=== PATIENT | male | born 1940 | race Caucasian/White ===

== ENCOUNTER → 2020-08-27 | Outpatient (CLI) | payer MEDICARE ==
[~2020-08-27] MED LIST: BREO ELLIPTA 21 EACH INH; CEFUROXIME500 MG PO; DIFLUCAN150 MG PO; DONEPEZIL HCL5 MG PO; FINASTERIDE5 MG PO; LEVOFLOXACIN500 MG PO; MEGACE 400400 MG/10 PO; METRONIDAZOLE250 MG PO; MINERAL OIL473 M2 NG; PANTOPRAZOLE SO40 MG PO; PERCOCET 5/325 T1 EA PO; QUETIAPINE FUMA25 MG PO; SPIRIVA RESPIMAT4 GM INH; TAMSULOSIN HCL0.4 MG PO; TYLENOL ELIXIR GT
== END ==
LOC: US 09:56
DX: K42.9 Umbilical hernia without obstruction or gangrene (principal); I71.4 Abdominal aortic aneurysm, without rupture
CPT/HCPCS: 76700

== ENCOUNTER → 2020-09-30 | Outpatient (CLI) | payer MEDICARE ==
[2020-09-30 09:24] LABS: HEMOGLOBIN 15.8 gm/dl (14.0-17.5); RED BLOOD COUNT 4.85 M/UL (4.20-5.50); WHITE BLOOD COUNT 9.4 K/UL (4.5-11.0)
== END ==
LOC: CT 08:55
PROVIDERS: Internal Medicine Hematology & Oncology
DX: C85.90 Non-Hodgkin lymphoma, unspecified, unspecified site (principal); I71.4 Abdominal aortic aneurysm, without rupture; M79.89 Other specified soft tissue disorders
CPT/HCPCS: 36415; 71260; 80053; 83615; 85027; Q9967

== ENCOUNTER → 2021-01-18 | Outpatient (CLI) | payer MEDICARE | LOC: CT 07:04 | DX: R10.9 Unspecified abdominal pain (principal); I71.4 Abdominal aortic aneurysm, without rupture | CPT/HCPCS: 36415; 82565; Q9967 ==

== ENCOUNTER → 2021-04-07 | Outpatient (CLI) | payer OTHER ==
[2021-04-07 09:53] LABS: HEMOGLOBIN 15.2 gm/dl (14.0-17.5); RED BLOOD COUNT 4.99 M/UL (4.20-5.50); WHITE BLOOD COUNT 9.9 K/UL (4.5-11.0)
== END ==
LOC: CT 04-05 09:00
PROVIDERS: Internal Medicine Hematology & Oncology
DX: C82.13 Follicular lymphoma grade II, intra-abdominal lymph nodes (principal); I71.9 Aortic aneurysm of unspecified site, without rupture
CPT/HCPCS: 36415; 71260; 80053; 85027; Q9965

== ENCOUNTER → 2022-02-16 | Outpatient (CLI) | payer MEDICARE | LOC: HEART 5 08:45 | DX: I71.4 Abdominal aortic aneurysm, without rupture (principal) ==

== ENCOUNTER → 2022-02-17 | Outpatient (CLI) | payer MEDICARE | LOC: HEART 5 08:32 | DX: I71.4 Abdominal aortic aneurysm, without rupture (principal) ==